=== PATIENT | female | born 1975 | race Two or more races ===

== ENCOUNTER 2023-01-28 12:11 | Inpatient (IN) | payer OTHER ==
[~2023-01-28] VITALS: Ht 165.1 cm; Wt 59.0 kg
[2023-02-08] MEDS ORDERED: PEPCID AC20 MG PO (12:40)
[2023-02-08] MEDS ORDERED: PERCOCET 5-3251 EACH PO (12:40)
[2023-02-08] MEDS ORDERED: HYOSCYAMINE0.125 M1 SL (12:40)
== END 2023-02-08 13:14 | disposition home or self-care (01) | DRG 330 ==
LOC: O/R 02-04 08:51 → SURG 02-04 10:30 → SURH 02-04 21:07
PROVIDERS: ADMIT Surgery; ATTEND Surgery
PROC: 0DBP4ZZ Excision of Rectum, Percutaneous Endoscopic Approach (ICD-10-PCS; 2023-02-04)
PROC: 0D1B4Z4 Bypass Ileum to Cutaneous, Percutaneous Endoscopic Approach (ICD-10-PCS; 2023-02-04)
PROC: 07BC4ZZ Excision of Pelvis Lymphatic, Percutaneous Endoscopic Approach (ICD-10-PCS; 2023-02-04)
PROC: 0DTN4ZZ Resection of Sigmoid Colon, Percutaneous Endoscopic Approach (ICD-10-PCS; principal; 2023-02-04 10:30)
DX: C20 Malignant neoplasm of rectum (principal); K62.5 Hemorrhage of anus and rectum; K59.09 Other constipation

== ENCOUNTER 2023-07-24 10:15 | Inpatient (IN) | payer OTHER ==
[~2023-07-24] VITALS: Ht 165.1 cm; Wt 56.7 kg
[~2023-07-24 10:15] MED LIST: HYOSCYAMINE0.125 M1 SL; PEPCID AC20 MG PO; PERCOCET 5-3251 EACH PO
[2023-08-01 15:45] LABS: HEMOGLOBIN 13.5 g/dL (12.0-15.00); MEAN CELL VOLUME 91.1 fL (80.00-100.00); MEAN CORPUSCULAR HEMOGLOBIN 31.5 pg (27.00-32.0); MEAN CORPUSCULAR HGB CONC 34.6 g/dl (32.0-36.0); PLATELET COUNT 203 K/uL (150-450); RED BLOOD COUNT 4.28 M/uL (4.00-6.00); RED CELL DISTRIBUTION WIDTH 13.6 % (11.5-14.5)
[2023-08-01 16:27] LABS: ALBUMIN 3.8 gm/dL (3.4-5.0); CALCIUM 9.1 mg/dL (8.5-10.1); CREATININE SERUM 0.58 mg/dL (0.55-1.02); GFR 111.43; MAGNESIUM 1.9 mg/dL (1.8-2.4); PHOSPHOROUS 3.9 mg/dL (2.5-4.9); POTASSIUM 3.92 mEq/L (3.5-5.1)
[2023-08-02 08:03] LABS: ALBUMIN 3.8 gm/dL (3.4-5.0); CALCIUM 9.1 mg/dL (8.5-10.1); CREATININE SERUM 0.53 mg/dL (0.55-1.02); GFR 123.65; MAGNESIUM 2.1 mg/dL (1.8-2.4); POTASSIUM 4.47 mEq/L (3.5-5.1)
[2023-08-02 08:24] LABS: HEMATOCRIT 38.5 % (36.0-45.00); HEMOGLOBIN 13.2 g/dL (12.0-15.00); MEAN CELL VOLUME 90.9 fL (80.00-100.00); MEAN CORPUSCULAR HEMOGLOBIN 31.2 pg (27.00-32.0); MEAN CORPUSCULAR HGB CONC 34.4 g/dl (32.0-36.0); PLATELET COUNT 174 K/uL (150-450); RED BLOOD COUNT 4.23 M/uL (4.00-6.00); RED CELL DISTRIBUTION WIDTH 13.4 % (11.5-14.5)
[2023-08-03 08:02] LABS: CALCIUM 8.7 mg/dL (8.5-10.1); CREATININE SERUM 0.55 mg/dL (0.55-1.02); GFR 118.48; MAGNESIUM 2.2 mg/dL (1.8-2.4); POTASSIUM 3.71 mEq/L (3.5-5.1)
[2023-08-03 08:03] LABS: HEMATOCRIT 35.7 % (36.0-45.00); HEMOGLOBIN 12.2 g/dL (12.0-15.00); MEAN CELL VOLUME 91.5 fL (80.00-100.00); MEAN CORPUSCULAR HEMOGLOBIN 31.2 pg (27.00-32.0); PLATELET COUNT 166 K/uL (150-450); RED CELL DISTRIBUTION WIDTH 12.8 % (11.5-14.5)
[2023-08-03] MEDS ORDERED: HYOSCYAMINE0.125 M1 SL (15:21)
== END 2023-08-03 16:49 | disposition home or self-care (01) | DRG 348 ==
LOC: SURG 08-01 10:15 → O/R 08-01 10:23 → SURG 08-01 13:45
PROVIDERS: Internal Medicine Geriatric Medicine; ADMIT Surgery; ATTEND Surgery
PROC: 3E0F7SF Introduction of Other Gas into Respiratory Tract, Via Natural or Artificial Opening (ICD-10-PCS; 2023-08-01)
PROC: 0DBB4ZZ Excision of Ileum, Percutaneous Endoscopic Approach (ICD-10-PCS; principal; 2023-08-01 13:45)
DX: Z43.2 Encounter for attention to ileostomy (principal); C20 Malignant neoplasm of rectum; K62.5 Hemorrhage of anus and rectum; K59.09 Other constipation; K66.0 Peritoneal adhesions (postprocedural) (postinfection)